=== PATIENT | male | born 1995 | race Caucasian/White ===

== ENCOUNTER 2019-01-03 12:52 | Emergency (ER) | payer SELFPAY ==
[2019-01-03] MEDS ORDERED: Zofran 4 MG/2 ML VIAL ONE (13:35)
[2019-01-03] MEDS ORDERED: Hydromorphone 1 mg/ml Ampule ONE (13:36)
[2019-01-03] MEDS ORDERED: Sodium Chloride 0.9% 1000 ML 1,000 ML ONE (13:36)
[2019-01-03] MEDS ORDERED: TORAdol 30 mg Injection ONE (13:36)
[2019-01-03] MEDS: Sodium Chloride 0.9% 1000 ML 1,000 ML IV STA (13:37)
[2019-01-03] MEDS: Hydromorphone 1 mg/ml Ampule IV ONE (13:49)
[2019-01-03] MEDS: TORAdol 30 mg Injection IV ONE (13:55)
[2019-01-03] MEDS: Zofran 4 MG/2 ML VIAL IV ONE (13:56)
--- NOTE | 2019-01-03 14:30 | ERPHSYRPT ---
- History of Present Illness Time Seen by Provider: 01/03/19 13:20 Historian: patient Exam Limitations: no limitations Patient Subjective Stated Complaint: pt reports left sided groin, testicle pain as well as lower left quadrant abd pain. pt reports he thinks he is trying to pass a kidney stone. Triage Nursing Assessment: pt is aox3, pupils perrl, pt appears in pain, afebrile, resps easy and non labored, radial pulses strong and equal, cap refill < 3 seconds, abd soft tender to the left lower quad, bowel sounds present and normoactive x 4. pt skin pink warm dry. Physician History: 23 y/o white male presents with sudden onset of left flank pain with radiation to left groin and testicle. never had before. has had assoc decreased urine output. no abd pain. no soa and no cp. Timing/Duration: today Quality: aching, stabbing Abdominal Pain Onset Location: flank (left) Pain Radiation: groin (right) Severity of Pain-Max: moderate Severity of Pain-Current: moderate Modifying Factors: Improves With: nothing Associated Symptoms: diaphoresis, nausea, testicular pain (left), No vomiting Previous symptoms: no prior history Allergies/Adverse Reactions: No Known Drug Allergies Allergy (Verified 05/25/15 09:06) Hx Tetanus, Diphtheria Vaccination/Date Given: No Hx Influenza Vaccination/Date Given: No Hx Pneumococcal Vaccination/Date Given: No Immunizations Up to Date: Yes - Review of Systems Constitutional: No Symptoms Eyes: No Symptoms Ears, Nose, & Throat: No Symptoms Respiratory: No Symptoms Cardiac: No Symptoms Abdominal/Gastrointestinal: Nausea, No Abdominal Pain, No Vomiting, No Diarrhea Genitourinary Symptoms: Flank Pain (left), Testicle Pain (left) Musculoskeletal: No Symptoms Skin: No Symptoms Neurological: No Symptoms Psychological: No Symptoms Endocrine: No Symptoms Hematologic/Lymphatic: No Symptoms Immunological/Allergic: No Symptoms All Other Systems: Reviewed and Negative - Past Medical History Pertinent Past Medical History: No Neurological History: No Pertinent History ENT History: No Pertinent History Cardiac History: No Pertinent History Respiratory History: No Pertinent History Endocrine Medical History: No Pertinent History Musculoskeletal History: No Pertinent History GI Medical History: No Pertinent History History: No Pertinent History Psycho-Social History: No Pertinent History Male Reproductive Disorders: No Pertinent History - Past Surgical History Past Surgical History: Yes Other Surgical History: tonsils - Social History Smoking Status: Never smoker How long have you smoked: 1 Exposure to second hand smoke: Yes Drug Use: none Patient Lives Alone: Yes - Nursing Vital Signs Nursing Vital Signs: Initial Vital Signs Temperature 98 F 01/03/19 13:01 Pulse Rate 79 01/03/19 13:01 Respiratory Rate 20 01/03/19 13:01 Blood Pressure 149/102 01/03/19 13:01 O2 Sat by Pulse Oximetry 97 01/03/19 13:01 Pain Scale Pain Intensity 0 - Physical Exam General Appearance: mild distress, alert, anxiety Eye Exam: PERRL/EOMI, eyes nml inspection Ears, Nose, Throat Exam: normal ENT inspection, moist mucous membranes Neck Exam: normal inspection, non-tender, supple, full range of motion Respiratory Exam: normal breath sounds, lungs clear, airway intact, No chest tenderness, No respiratory distress Cardiovascular Exam: regular rate/rhythm, normal heart sounds, normal peripheral pulses Gastrointestinal/Abdomen Exam: soft, normal bowel sounds, No tenderness Male Genitalia Exam: normal genitalia, testicular tenderness (left), No hernia Rectal Exam: not done Back Exam: normal inspection, normal range of motion, CVA tenderness (left), No vertebral tenderness Extremity Exam: normal inspection, normal range of motion, pelvis stable Neurologic Exam: alert, oriented x 3, cooperative, acid cutter II-XII nml as tested Skin Exam: normal color, warm, dry Lymphatic Exam: No adenopathy SpO2 Interpretation: normal SpO2: 97 O2 Delivery: Room Air - Course Nursing assessment & vital signs reviewed: Yes Ordered Tests: Active Orders 24 hr Category Date Time Status IV Insertion STAT Care 01/03/19 13:25 Active ABDOMEN AND PELVIS W/0 CONTRAS [CT] Stat Exams 01/03/19 13:24 Completed CULTURE,URINE Stat Lab 01/03/19 14:04 Received UA W/RFX UR CULTURE Stat Lab 01/03/19 14:04 Completed Medication Summary Discontinued Medications Generic Name Dose Route Start Last Admin Trade Name Freq PRN Reason Stop Dose Admin Hydromorphone HCl 1 mg 01/03/19 13:25 01/03/19 13:49 Hydromorphone 1 Mg/Ml Ampule IV 01/03/19 13:26 1 mg STAT ONE Administration Hydromorphone HCl Confirm 01/03/19 13:36 Hydromorphone 1 Mg/Ml Ampule Administered 01/03/19 13:37 Dose 1 mg .ROUTE .STK-MED ONE Sodium Chloride 1,000 mls @ 999 mls/hr 01/03/19 13:25 01/03/19 13:37 Sodium Chloride 0.9% 1000 Ml IV 01/03/19 14:25 999 mls/hr .Q1H1M STA Administration Sodium Chloride Confirm 01/03/19 13:36 Sodium Chloride 0.9% 1000 Ml Administered 01/03/19 13:37 Dose 1,000 mls @ ud .ROUTE .STK-MED ONE Ketorolac Tromethamine 30 mg 01/03/19 13:25 01/03/19 13:55 Toradol 30 Mg Injection IV 01/03/19 13:26 30 mg STAT ONE Administration Ketorolac Tromethamine Confirm 01/03/19 13:36 Toradol 30 Mg Injection Administered 01/03/19 13:37 Dose 30 mg .ROUTE .STK-MED ONE Ondansetron HCl 4 mg 01/03/19 13:25 01/03/19 13:56 Zofran 4 Mg/2 Ml Vial IV 01/03/19 13:26 4 mg STAT ONE Administration Ondansetron HCl Confirm 01/03/19 13:35 Zofran 4 Mg/2 Ml Vial Administered 01/03/19 13:36 Dose 4 mg .ROUTE .STK-MED ONE Lab/Rad Data: Laboratory Results 01/03/19 Range/Units 14:04 Urine Color YELLOW (YELLOW) Urine Appearance SLIGHTLY CLOUDY (CLEAR) Urine pH 6.0 (5-6) Ur Specific [place] 1.020 (1.005-1.025) Urine Protein 30 (Negative) Urine Ketones NEGATIVE (NEGATIVE) Urine Blood LARGE (0-5) Gavin/ul Urine Nitrite NEGATIVE (NEGATIVE) Urine Bilirubin NEGATIVE (NEGATIVE) Urine Urobilinogen NEGATIVE (0-1) mg/dL Ur Leukocyte Esterase NEGATIVE (NEGATIVE) Urine WBC (Auto) 6-10 (0-5) /HPF Urine RBC (Auto) >101 (0-2) /HPF U Epithel Cells (Auto) FEW (FEW) /HPF Urine Bacteria (Auto) RARE (NEGATIVE) /HPF Urine Mucus (Auto) SLIGHT (NEGATIVE) /HPF Urine Culture Reflexed YES (NO) Urine Glucose NEGATIVE (NEGATIVE) mg/dL - Progress Progress: improved, pain not gone completely, re-examined Progress Note: 01/03/19 15:06 ct abd/pelvis-left distal ureteral stone 2 to 3mm. mild hydronephrosis and mild left ureteral prominence 01/03/19 15:07 Counseled pt/family regarding: lab results, diagnosis, need for follow-up, rad results - Departure Departure Disposition: Home Clinical Impression: Left ureteral calculus Condition: Stable Critical Care Time: No Referrals: DOCTOR,NO FAMILY [Primary Care Provider] - Additional Instructions: drink plenty of fluids. ibuprofen 600mg orally 3 times daily with food. follow up with urologist for further management Prescriptions: Hydrocodone/APAP 5/325 [[place] 5/325 mg] 1 each PO Q6H PRN PRN #10 tablet MDD 4 PRN Reason: Pain
[2019-01-03 14:37] LABS: Appearance SLIGHTLY CLOUDY (CLEAR); Bacteria RARE /HPF (NEGATIVE); Bilirubin NEGATIVE (NEGATIVE); Blood LARGE Ery/ul (0-5); Glucose NEGATIVE (NEGATIVE); Ketones NEGATIVE (NEGATIVE); Leukocyte Esterase NEGATIVE (NEGATIVE); Mucus SLIGHT /HPF (NEGATIVE); Nitrite NEGATIVE (NEGATIVE); Protein,Urine Dip 30 (Negative); Urobilinogen NEGATIVE mg/dL (0-1)
[2019-01-03 14:38] LABS: Epithelial Cells FEW /HPF (FEW); RBC >101 /HPF (0-2)
--- NOTE | 2019-01-03 14:41 | XRAY ---
Indication: Bilateral flank and testicle pain. Multiple contiguous axial images obtained through the abdomen and pelvis without contrast as ordered. Comparison: None Lung bases demonstrate minimal bibasilar dependent atelectasis. No infiltrate or effusion. Heart is not enlarged. Noncontrasted stomach and bowel loops appear nonobstructed. Normal appendix. No free fluid/air. There are scattered small subcentimeter mesenteric and right lower quadrant nodes, possible mesenteric adenitis. 2-3 mm distal left ureter calculus seen just proximal to the UVJ. Proximal left ureter slightly prominent and mild left hydronephrosis consistent with partial obstructive uropathy. Nonobstructing left renal punctate calculus. Remaining liver, gallbladder, pancreas, spleen, adrenal glands, kidneys, ureters, bladder, and aorta appear unremarkable for noncontrast exam. Osseous structures intact. A few prominent bilateral inguinal lymph nodes, largest 1.3 x 1.6 cm on left. Impression: 1. 2-3 mm distal left ureter calculus producing partial obstruction as detailed. Additional left renal micro-calculus. 2. Scattered small mesenteric lymph nodes, possible adenitis. 3. Prominent bilateral inguinal lymph nodes presumed reactive. 4. Remaining CT abdomen/pelvis without contrast exam is negative. CT DI 28.14
[2019-01-03 15:12] VITALS: BP 127/86; PULSE 80; O2SAT 98
== END 2019-01-03 15:22 | disposition home or self-care (01) ==
LOC: ED 12:52
DX: N13.2 Hydronephrosis with renal and ureteral calculous obstruction (principal)
CPT/HCPCS: 36000; 74176; 81001; 87086; 96360; 96374; 96375; 99284; J1170; J1885; J2405